=== PATIENT | male | born 1980 | race Asian ===

== ENCOUNTER 2020-10-30 11:30 | Outpatient (REF) | payer OTHER, SELFPAY | END 2020-10-30 11:31 | disposition home or self-care (01) | LOC: HO.LAB 11:30 | PROVIDERS: Visit Provider Internal Medicine | DX: Z20.822 Contact with and (suspected) exposure to COVID-19 (principal) | CPT/HCPCS: C9803; U0003; U0005 ==

== ENCOUNTER 2020-11-02 09:51 | Outpatient (REF) | payer OTHER, SELFPAY | END 2020-11-02 09:52 | disposition home or self-care (01) | LOC: HO.LAB 09:51 | PROVIDERS: Visit Provider Internal Medicine | DX: Z20.822 Contact with and (suspected) exposure to COVID-19 (principal) | CPT/HCPCS: C9803; U0003; U0005 ==

== ENCOUNTER 2023-06-08 13:43 | Emergency (ER) | payer OTHER, SELFPAY ==
--- NOTE | ~2023-06-08 | XR_ITS ---
EXAMINATION: XR CHEST CLINICAL INFORMATION: Chest pain. COMPARISON: None available. TECHNIQUE: Frontal view of the chest was obtained. FINDINGS: No significant abnormality is noted involving the heart, lungs, mediastinum, bony thorax or soft tissues. XR/XR chest 1V IMPRESSION: Unremarkable chest examination.
--- NOTE | 2023-06-08 13:45 | ECG_ITS ---
Test Reason : CP Blood Pressure : / mmHG Vent. Rate : 073 BPM Atrial Rate : 073 BPM P-R Int : 150 ms QRS Dur : 086 ms QT Int : 374 ms P-R-T Axes : 055 -08 -41 degrees QTc Int : 412 ms Normal sinus rhythm Nonspecific ST and T wave abnormality Abnormal ECG No previous ECGs available Referred By: Shanna Vides Electronically Signed By:ENRIQUE MARIANO
--- NOTE | 2023-06-08 13:55 | ED_ITS ---
HPI - General Adult General Chief complaint: Chest Pain Stated complaint: chest pain Time Seen by Provider: 06/08/23 17:11 Source: patient and family () Mode of arrival: ambulatory Limitations: no limitations History of Present Illness HPI narrative: 43 year old male with no significant pmhx presents to the ED today for evaluation of chest pain beginning acutely last night. States he got out of bed to get his a glass of water when he suddenly felt pain to the left side of his chest, radiating around the chest to the back. Pain has been constant and is exacerbated with deep breathing. Reports pain intensity 10/10 at onset, now rated 4/10. Took tylenol last night without relief. Denies known cardiac disease. He does not take medications on a daily basis. Denies injury or trauma. Denies fever, chills, cough, wheezing, shortness of breath, hemoptysis, nausea or vomiting, abdominal pain, flank pain, dysuria, hematuria. Denies recent travel or long car rides. Denies history of tobacco use. Related Data Previous Rx's Medication Instructions Recorded amlodipine 2.5 mg tablet 2.5 mg PO DAILY #30 tabs 06/08/23 Allergies Allergy/AdvReac Type Severity Reaction Status Date / Time No Known Allergies Allergy Verified 06/08/23 13:56 [No Known Allergies*] Review of Systems 2 Review of Systems: Constitutional: No fever, chills, fatigue, night sweats, weight changes ENT/Mouth: No ear pain, hearing loss, nasal congestion, sinus pain, rhinorrhea, sore throat Eyes: No eye pain, swelling, redness, vision changes, discharge Cardio: +chest pain, No palpitations, LAM, orthopnea, peripheral edema Pulm: No SOB, cough, sputum, wheezing, dyspnea, hemoptysis GI: No nausea, vomiting, hematemesis, abdominal pain, diarrhea, constipation, hematochezia, melena : No irregular bleeding, dysuria, frequency, urgency, hesitancy, hematuria, flank pain, urinary flow changes, urinary incontinence or retention MSK: No back pain, neck pain, joint pain, myalgias Skin: No lesions, rashes Neuro: No weakness, numbness, paresthesias, LOC, dizziness, headache All other systems reviewed and are negative. [facility] Past Medical History Attestation statement: The following information was validated with the patient. Source: old records reviewed and nursing notes reviewed Social History Social History Advance Directives: No Advance Directives Information Provided: No Physical Exam ED Vital Signs: Vital Signs - 24 hr 06/08/23 13:56 06/08/23 16:58 06/08/23 17:05 Temperature 98.2 F Pulse Rate 77 64 Respiratory Rate 18 16 Blood Pressure 164/100 H 177/103 H 168/98 H Pulse Oximetry 98 97 Oxygen Delivery Method Room Air Room Air 06/08/23 17:59 Temperature Pulse Rate 64 Respiratory Rate 18 Blood Pressure 166/99 H Pulse Oximetry 98 Oxygen Delivery Method Room Air BMI result Body Mass Index 34.9 Hypertensive to 168/98. Afebrile. Const Other: + nontoxic appearing, somewhat anxious General: cooperative, healthy appearing, comfortable, no acute distress, alert and awake Nutritional Appearance: overweight Orientation/consciousness: patient oriented x3 Limitations: no limitations Eyes General: appearance normal, both eyes and all related structures Conjunctivae: conjunctivae normal Sclerae: sclerae normal Pupils: Equal, round and reactive pupils present Neck Neck: Yes normal visual inspection, Yes full ROM, Yes no lymphadenopathy and Yes no JVD Chest Chest palpation & inspection: normal inspection of the chest, normal palpation of entire chest wall, no crepitus and no tenderness Resp Effort & Inspection: normal respiratory effort, able to speak in complete sentences, no respiratory distress, no tripod positioning and no use of accessory muscles Auscultation: clear to auscultation bilaterally, no wheezes and breath sounds present Cardio Jugular venous distension: no JVD Rate: regular rate Rhythm: regular rhythm Peripheral pulses: Peripheral pulses 2+ throughout GI Inspection: Yes normal to inspection Palpation (GI): Soft to palpation, nontender, no pulsatile masses and no aortic enlargement General: Yes no CVA tenderness Back/Spine/Pelvis Other: No midline spinous tenderness. No paraspinal muscle tenderness. No step off deformity. Back: no CVA tenderness Skin General skin exam: no rashes or lesions noted Neuro Other: Strength 5/5 intact throughout.? No saddle anesthesia.? Sensation intact to light touch.? Neurovascular intact distally.? General: patient oriented x3, gait normal and moves all extremities Cranial nerves: Yes Equal, round and reactive pupils present Extrem General: Yes normal to inspection Course Course Course Narrative: This is an RME: Additional HPI, ROS, PE not included below will be deferred to primary provider. 43-year-old male presents with left-sided chest pain worse with deep breathing, better with laying flat. Reports sharp pain, again aggravated by breathing, difficult to take a deep breath and per patient. This is been ongoing for 2 days. Unremarkable exam Plan labs, imaging Reevaluation(s) Reevaluation #1: 1731-- he with the without leukocytosis or anemia. D-dimer negative > patient has no risk factors. Perc score 0. CTA chest not indicated. Chemistry without acute electrolyte abnormality requiring intervention. Troponin undetectable x2. Patient requesting COVID test. EKG showing normal sinus rhythm with a rate of 73 beats per minute, QT 374, no acute ischemic changes or ST elevations. Chest x-ray unremarkable. > patient is noted to be hypertensive to 168/98. Denies known diagnosis of hypertension. Does not take antihypertensives at home. Will give 5 mg of amlodipine in ED and re-evaluate blood pressure. 1820-- On repeat vitals, patient's blood pressure is still elevated. We do not have any priors to compare to and this may be where the patient lives at baseline. Discussed this with my attending physician, Dr. Ndiaye, who also evaluated patient. Presentation consistent with pleuritis vs elevated blood pressure. Will send amlodipine to patient's pharmacy to take daily. Will also provide patient with a referral to a primary care doctor to establish care. Discussed the importance of following up with the primary care doctor. He verbalizes understanding and states that he will make an appointment tomorrow. Patient has remained stable throughout ED visit today. Discussed worrisome signs symptoms and when to return to the ED. All questions answered at this time. Patient is agreeable with disposition and stable for discharge. Medications Administered Discontinued Medications Generic Name Dose Route Start Last Admin Trade Name Freq PRN Reason Stop Dose Admin Amlodipine Besylate 5 mg 06/08/23 17:15 06/08/23 17:23 Amlodipine Besylate 5 Mg Tablet PO 06/08/23 17:16 5 mg ONCE ONE Administration Protocol Ketorolac Tromethamine 60 mg 06/08/23 17:26 06/08/23 18:02 Ketorolac Tromethamine 60 Mg/2 Ml Vial IM 06/08/23 17:27 60 mg ONCE ONE Administration Medical Decision Making Medical Decision Making [facility] Narrative: 43 year old male with no significant pmhx presents to the ED today for evaluation of chest pain beginning acutely last night. Patient is nontoxic appearing in no acute distress however anxious. Vital signs notable for hypertension to 168/98. Otherwise WNL. Afebrile. RRR. No reproducible chest wall tenderness. No palpable deformity. Lungs CTA bilaterally, no wheezing. No calf tenderness bilaterally. PERC score 0. Concern for hypertension, arrhythmia, ACS, viral syndrome, pneumonia, pleuritis. Lower suspicion for pneumothorax, pleural effusion, pulmonary embolism, DVT. Unlikely dissection, AAA. Unlikely renal colic, nephrolithiasis, UTI, cauda equina, cord compression, Guillain-Jasper, epidural abscess. Labs, EKG, chest x-ray ordered in triage. Will obtain viral serology and re-evaluate. Differential Diagnosis Differential Diagnoses: The differential diagnosis associated with the presentation includes as above. Admission/Observation Not indicated Lab Data [facility] Lab Attestation statement: I reviewed the patient's lab results. As above 06/08/23 13:54 06/08/23 13:54 Labs: Lab Results 06/08/23 06/08/23 06/08/23 Range/Units 13:54 14:37 16:09 WBC 6.1 (4.8-10.8) X10*3/uL RBC 5.76 (4.60-5.80) X10*6/uL Hgb 16.4 (14.0-18.0) g/dl Hct 49.1 (42.0-52.0) % MCV 85.2 (80.0-98.0) fL MCH 28.5 (27.0-33.0) pg MCHC 33.4 (31.0-36.0) g/dl RDW 14.0 (11.0-16.0) % Plt Count 190 (160-400) X10*3/uL MPV 10.9 (9.4-12.4) fL Immature Gran % (Auto) 0.2 (0.0-0.4) % Neut % (Auto) 47.8 (45-73) % Lymph % (Auto) 41.0 H (20-40) % [place] % (Auto) 7.4 (2-11) % Eos % (Auto) 2.6 (0-4) % Baso % (Auto) 1.0 (0-2) % Lymph # (Auto) 2.5 (1.2-4.9) X10*3/uL [place] # (Auto) 0.5 (0.1-1.2) X10*3/uL Eos # (Auto) 0.2 (0.0-0.4) X10*3/uL Baso # (Auto) 0.1 (0.0-0.2) X10*3/uL Abs Immat Gran (auto) 0.01 (0.00-0.03) X10*3/uL Absolute Neuts (auto) 2.9 (2.0-8.3) x10*3/uL Absolute Nucleated RBC 0.000 (0.0-0.012) X10*3/uL Nucleated RBC % (auto) 0.0 (0.0-0.2) /100WBC PT 14.1 H (11.1-13.3) SEC INR 1.2 H (0.9-1.1) D-Dimer High Sensitivty < 150 NG/ML Sodium 144 (135-145) mmol/L Potassium 3.7 (3.3-5.1) mmol/L Chloride 109 H (96-108) mmol/L Carbon Dioxide 21 L (22-29) mmol/L Anion Gap 18 (12-20) BUN 23 H (9-16) mg/dL Creatinine 0.91 (0.5-1.4) mg/dL Estim Creat Clear Calc 140.8 Estimated GFR > 60 Random Glucose 89 (60-115) mg/dL Calcium 9.6 (8.4-10.2) mg/dL Magnesium 2.3 (1.6-2.6) mg/dL Total Bilirubin 1.0 (0.0-1.0) mg/dL AST 25 (5-37) U/L ALT 43 H (0-40) U/L Alkaline Phosphatase 109 (39-117) U/L Troponin I High Sens < 2.7 < 2.7 (<3.5-35.0) ng/L Total Protein 7.8 (6.5-8.0) g/dL Albumin 4.2 (3.5-5.0) g/dL COVID-19 (PABLO) (Negative) COVID-19 Clin Com 06/08/23 Range/Units 17:25 WBC (4.8-10.8) X10*3/uL RBC (4.60-5.80) X10*6/uL Hgb (14.0-18.0) g/dl Hct (42.0-52.0) % MCV (80.0-98.0) fL MCH (27.0-33.0) pg MCHC (31.0-36.0) g/dl RDW (11.0-16.0) % Plt Count (160-400) X10*3/uL MPV (9.4-12.4) fL Immature Gran % (Auto) (0.0-0.4) % Neut % (Auto) (45-73) % Lymph % (Auto) (20-40) % [place] % (Auto) (2-11) % Eos % (Auto) (0-4) % Baso % (Auto) (0-2) % Lymph # (Auto) (1.2-4.9) X10*3/uL [place] # (Auto) (0.1-1.2) X10*3/uL Eos # (Auto) (0.0-0.4) X10*3/uL Baso # (Auto) (0.0-0.2) X10*3/uL Abs Immat Gran (auto) (0.00-0.03) X10*3/uL Absolute Neuts (auto) (2.0-8.3) x10*3/uL Absolute Nucleated RBC (0.0-0.012) X10*3/uL Nucleated RBC % (auto) (0.0-0.2) /100WBC PT (11.1-13.3) SEC INR (0.9-1.1) D-Dimer High Sensitivty NG/ML Sodium (135-145) mmol/L Potassium (3.3-5.1) mmol/L Chloride (96-108) mmol/L Carbon Dioxide (22-29) mmol/L Anion Gap (12-20) BUN (9-16) mg/dL Creatinine (0.5-1.4) mg/dL Estim Creat Clear Calc Estimated GFR Random Glucose (60-115) mg/dL Calcium (8.4-10.2) mg/dL Magnesium (1.6-2.6) mg/dL Total Bilirubin (0.0-1.0) mg/dL AST (5-37) U/L ALT (0-40) U/L Alkaline Phosphatase (39-117) U/L Troponin I High Sens (<3.5-35.0) ng/L Total Protein (6.5-8.0) g/dL Albumin (3.5-5.0) g/dL COVID-19 (PABLO) Negative (Negative) COVID-19 Clin Com See Note Independent Interpretation I performed an independent interpretation of an: EKG and Plain X-Ray Interpretation: EKG showing normal sinus rhythm with a rate of 73 beats per minute, QT 374, QTC 412, nonspecific ST and T-wave abnormality, no acute ischemic changes or ST elevations. Chest x-ray without infiltrate or consolidation, agree with radiologist's interpretation. Radiology Impression Discussion of test interpretation with radiology: I have reviewed the radiologist's reading. Radiologist Impression: XR chest 1V IMPRESSION: Unremarkable chest examination. Independent Historian Clinical information obtained from an independent historian. History obtained from or confirmed by: Spouse () External Record Review External record reviewed: Inpatient record Prescription Management I considered prescription management with: Pain Medication and Other (Antihypertensive) Social Determinants Patient?s care significantly limited by Social Determinants of Health including: Other Social Determinant of Health Critical Care Time Critical Care Time Critical Care Time: No Discharge Plan Discharge Clinical Impression: Blood pressure elevated without history of HTN Patient Disposition: Home, Self-Care Instructions: Heart Healthy Diet (ED), How to Take a Blood Pressure (ED), Low- Sodium Diet (ED), Hypertension (ED) Additional Instructions: Your labs today were normal. Your EKG today was normal. Your chest x-ray today was normal. You were noted to have high blood pressure in the ED. You were given a dose of medication for this with improvement in blood pressure. Amlodipine is an antihypertensive that has been sent to your pharmacy. Take this daily for high blood pressure. You have also been provided with a referral to a primary care doctor. CALL THEM TO MAKE AN APPOINTMENT. THEY WILL NOT CALL YOU. If symptoms persist or worsen please return to the emergency department. In the case of an emergency call 911. Prescriptions: New amlodipine 2.5 mg tablet 2.5 mg PO DAILY Qty: 30 0RF Referrals: [facility] [Provider Group] [facility] [place] [facility] Group] Interventions: ED Discharge Assessment Last Done: 06/08/23 18:35 Discharge Date/Time: 06/08/23 18:36
[2023-06-08 13:56] VITALS: BP 164/100; PULSE 77; RESP 18; TEMP 36.8; O2SAT 98; BMI 34.9
[2023-06-08 13:59] LABS: MANUAL DIFF FLAG NO
[2023-06-08 14:01] LABS: Basophils Absolute Auto 0.1 X10*3/uL (0.0-0.2); Eosinophils Absolute Auto 0.2 X10*3/uL (0.0-0.4); Eosinophils Percent Auto 2.6 % (0-4); Hematocrit 49.1 % (42.0-52.0); Hemoglobin 16.4 g/dl (14.0-18.0); Imm Gran Abs Auto 0.01 X10*3/uL (0.00-0.03); Imm Gran Pct Auto 0.2 % (0.0-0.4); Lymphocytes Absolute Auto 2.5 X10*3/uL (1.2-4.9); Mean Corpuscular HGB Conc 33.4 g/dl (31.0-36.0); Mean Corpuscular Hemoglobin 28.5 pg (27.0-33.0); Mean Corpuscular Volume 85.2 fL (80.0-98.0); Mean Platelet Volume 10.9 fL (9.4-12.4); Monocytes Absolute Auto 0.5 X10*3/uL (0.1-1.2); Monocytes Percent Auto 7.4 % (2-11); Neutrophils Absolute Auto 2.9 x10*3/uL (2.0-8.3); Neutrophils Percent Auto 47.8 % (45-73); Platelet Count 190 X10*3/uL (160-400); Red Blood Count 5.76 X10*6/uL (4.60-5.80); White Blood Count 6.1 X10*3/uL (4.8-10.8)
[2023-06-08 14:27] LABS: Alanine Aminotransferase 43 U/L (0-40); Albumin Level 4.2 g/dL (3.5-5.0); Alkaline Phosphatase 109 U/L (39-117); Anion Gap 18 (12-20); Aspartate Amino Transferase 25 U/L (5-37); Blood Urea Nitrogen 23 mg/dL (9-16); Calcium 9.6 mg/dL (8.4-10.2); Carbon Dioxide 21 mmol/L (22-29); Chloride 109 mmol/L (96-108); Creatinine Clr Calc Pharmacy 140.8; Estimated Glomerular Filt Rate > 60; Glucose Random 89 mg/dL (60-115); Magnesium 2.3 mg/dL (1.6-2.6); Potassium 3.7 mmol/L (3.3-5.1); Sodium 144 mmol/L (135-145); Total Protein 7.8 g/dL (6.5-8.0)
[2023-06-08 14:35] LABS: Troponin-I High Sensitivity < 2.7 ng/L (<3.5-35.0)
[2023-06-08 14:51] LABS: INTERNATIONAL NORM RATIO 1.2 (0.9-1.1); Prothrombin Time 14.1 SEC (11.1-13.3)
[2023-06-08 14:53] LABS: D Dimer High Sensitivity < 150 NG/ML
[2023-06-08 16:39] LABS: Troponin-I High Sensitivity < 2.7 ng/L (<3.5-35.0)
[2023-06-08 16:58] VITALS: BP 177/103; PULSE 64; RESP 16; O2SAT 97
[2023-06-08 17:05] VITALS: BP 168/98
[2023-06-08] MEDS: amLODIPine Besylate 5 MG TABLET PO (17:23)
[2023-06-08 17:50] LABS: COVID-19 Test Negative (Negative); IDNOW Serial# BCCEAD1C
[2023-06-08 17:59] VITALS: BP 166/99; PULSE 64; RESP 18; O2SAT 98
[2023-06-08] MEDS: Ketorolac Tromethamine 60 MG/2 ML VIAL IM (18:02)
== END 2023-06-08 18:36 | disposition home or self-care (01) ==
PROVIDERS: Physician Assistant; Physician Assistant Medical; Emergency Provider Emergency Medicine
DX: I10 Essential (primary) hypertension (principal); R07.9 Chest pain, unspecified; Z11.52 Encounter for screening for COVID-19
CPT/HCPCS: 36415; 71045; 80053; 83735; 84484; 85025; 85379; 85610; 87635; 93005; 96372; 99284; J1885

== ENCOUNTER → 2023-06-08 13:45 | Outpatient (BNV) | payer OTHER, SELFPAY | PROVIDERS: Emergency Provider Emergency Medicine; Visit Provider Internal Medicine | DX: R07.9 Chest pain, unspecified (principal) | CPT/HCPCS: 93010 ==

== ENCOUNTER 2023-06-26 17:10 | Outpatient (AMB) | payer OTHER, SELFPAY ==
--- NOTE | 2023-06-26 17:11 | A.OFFPC_ITS ---
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 Acetylene Torch Burner Required: No Accompanied by: Self / Same As Patient Allergies No Known Allergies [No Known Allergies*] Allergy (Verified 06/26/23 17:44) Medication List - Last Reconciled 06/26/23 by David Milligan CNP amlodipine 2.5 mg PO DAILY Tobacco use date assessed: 06/26/23 Dental Screening Dental Screen Date: 06/26/23 Did you have a dental visit in the last 12 months?: Yes Did you have a dental problem in the last 6 months where you did not have access to dental care?: No Was dental information given to patient?: Patient has dentist ([facility] in [place]) HPI HPI Comments History of Present Illness Details New patient Prior PCP: [facility],?Dr Mcfarland Last office visit/CPE: About 4 years Acute issue(s): Hypertension -He is on Amlodipine 2.5mg daily. He adm its to taking his medication as prescribed PMHx: HTN SurgHx: None FHx: None SocHx: Nonsmoker. No alcohol. No drugs He was evaluated and treated at [facility] [place] [facility] on 05/19/2023 for left-sided chest pain. Labs, EKG, and chest x-ray were unremarkable. Blood pressure was elevated between 164-177/98-103. He denied history of hypertension or being on antihypertensives. He was discharged home on amlodipine 2.5 mg daily and referred to a PCP. He reports intermittent stiffness around his left scapula for the past 2 weeks. He notes that he has been massaging the area and apply warm compresses with improvement He notes that he has not been exercising or making healthy healthy dietary choices and continues to gain weight [facility] Medical History (Updated 06/26/23 @ 17:54 by Chey Alegria CMA) No pertinent past medical history Surgical History (Updated 06/26/23 @ 17:54 by Chey Alegria CMA) No pertinent past surgical history Social History (Updated 06/26/23 @ 17:23 by Chey Alegria CMA) Household Members: Spouse and Children Housing: House Are you a primary human services care specialist to a significant other at home: No Do you presently have visiting nurse or other home services: No 75 years or older and lives alone: No Alcohol intake: never Patient Tobacco Use Status: Never used Tobacco e-Cigarette/Vaping Use: Never Used service: No Current occupational status: employed Current occupation: [employer] Current occupational exposures/hazards: Yes Sexual orientation: Unable to collect Gender identity: Unable to collect Cognitive needs: No Hearing needs: No Vision needs: No Questionnaire PHQ-9 Over the last 2 weeks, how often have you been bothered by any of the following problems? 1. Little interest or pleasure in doing things: not at all 2. Feeling down, depressed, or hopeless: not at all 3. Trouble falling or staying asleep, or sleeping too much: not at all 4. Feeling tired or having little energy: not at all 5. Poor appetite or overeating: not at all 6. Feeling bad about yourself - or that you are a failure or have let yourself or your family down: not at all 7. Trouble concentrating on things, such as reading the newspaper or watching television: not at all 8. Moving or speaking so slowly that other people could have noticed. Or the opposite - being so fidgety or restless that you have been moving around a lot more than usual: not at all 9. Thoughts that you would be better off or of hurting yourself in some way: not at all Total score: 0 Depression Screening Interpretation: Negative Depression Screening Done: Yes 70924 - PHQ-9 Billing: Yes Source: Developed by Drs. Cameron Clark, Carol Mendoza, Kvng Damon and colleagues, with an educational halley from [employer]. Thrive Questionnaire Date Thrive assessed: 06/26/23 I am a: Patient What is your living situation today?: I have a steady place to live Within the past 12 months, did the food you bought not last and you didn't have the money to get more?: Never true Within the past 12 months, did you worry whether your food would run out before you got money to buy more?: Never true Do you have trouble paying for medicines?: No Do you have trouble getting transportation to medical appointments?: No Do you have trouble paying your heating and electricity bill?: No Do you have trouble taking care of your child, family member or friend?: No Do you have trouble with day-to-day activities such as bathing, preparing meals, shopping, managing finances, etc.?: No Are you currently unemployed and looking for a job?: No Are you interested in more education?: No Please select the resources that you would like help with: None AUDIT C Alcohol Use Questionnaire (AUDIT-C) 1. How often do you have a drink containing alcohol?: Never 3. How often do you have six or more drinks on one occasion?: Never Total Score: 0 DARCIE-7 AMB Questionnaire DARCIE-7 Date DARCIE - 7 assessed: 06/26/23 Feeling nervous, anxious, or on edge: 0 = Not at all Not being able to stop or control worryin = Not at all Worrying too much about different things: 0 = Not at all Trouble relaxin = Not at all Being so restless that it is hard to sit still: 0 = Not at all Becoming easily annoyed or irritable: 0 = Not at all Feeling afraid as if something awful might happen: 0 = Not at all Total DARCIE-7 score (0-4 normal; 5-9 mild; 10-14 moderate; 15-21 severe): 0 Source: Developed by Drs. Cameron Clark, Carol Mendoza, Kvng Damon and colleagues, with an educational halley from [employer]. DARCIE-7 Assessment Billing DARCIE-7 Assessment Tool: DARCIE-7 Assessment 48915 Review of Systems Const Details: Const Denies chills, Denies fatigue, Denies fever(s), Denies headache(s) and Denies weakness ENT Denies dizziness and Denies headache(s) Card Denies chest pain, Denies lightheadedness, Denies dyspnea and Denies other (Palpitations) Resp Denies cough, Denies dyspnea, Denies wheezing and Denies other ( shortness of breath) GI Denies abdominal pain, Denies melena, Denies hematochezia, Denies change in bowel habits, Denies dyspepsia and Denies nausea Denies hematuria and Denies dysuria Musc Denies abnormal gait, Denies myalgias, Denies arthralgias, Denies numbness and Denies tingling Skin/Breast Denies rash, Denies unusual bruising and Denies wounds Neuro Denies abnormal gait, Denies dizziness, Denies headache(s), Denies memory loss, Denies numbness, Denies Sensory deficit (Neuro), Denies tingling and Denies weakness Psych Denies anxiety, Denies depression, Denies memory loss Endo Denies cold intolerance, Denies fatigue, Denies heat intolerance, Denies polydipsia and Denies polyuria Aller/Immun Denies wheezing Physical exam (Primary Care) Vital Signs: Last Vital Signs Pulse 94 06/26/23 17:12 Resp 13 06/26/23 17:12 BP 138/90 H 06/26/23 17:35 Pulse Ox 97 06/26/23 17:12 Oxygen Delivery Method Room Air 06/26/23 17:12 BMI result Body Mass Index 35.1 Tobacco/Smoking Status: Tobacco use Status Tobacco use date assessed 06/26/23 06/26/23 17:20 Patient Tobacco Use Status Never used Tobacco 06/26/23 17:23 e-Cigarette/Vaping Use Never Used 06/26/23 17:23 PHQ-9: PHQ-9 Score PHQ-9: Total score 0 06/26/23 17:25 Depression Screening Interpretation: Negative Thrive Assessment: Date of Thrive Assessment Date Thrive assessed 06/26/23 06/26/23 17:25 Const Other: General: no acute distress and well developed Nutritional Appearance: well nourished Orientation/consciousness: patient oriented x3 HENMT Head: Yes normocephalic and Yes atraumatic Eyes General: appearance normal, both eyes and all related structures Pupils: Equal, round and reactive pupils present EOM: EOMs intact bilaterally Resp Effort & Inspection: normal respiratory effort Auscultation: clear to auscultation bilaterally Cardio Rate: regular rate Rhythm: regular rhythm Heart sounds: S1 normal heart sound present, S2 normal heart sound present, no gallops, no murmurs and no rubs GI Palpation (GI): No Abdominal aortic bruit present, Soft to palpation, nontender, No hepatosplenomegaly present and No Rebound tenderness present Auscultation: normal bowel sounds General: Yes no CVA tenderness Back/Spine/Pelvis Back: no CVA tenderness Cervical Spine: cervical ROM normal and No Cervical spine tenderness Thoracic/Lumbar Spine: thoraco-lumbar ROM normal, No pain with thoraco-lumbar ROM, No thoracic spinal tenderness and No lumbar spinal tenderness Extrem General: Yes normal to inspection, No edema and No calf tenderness Skin General: warm and dry. Normal skin color. Normal skin turgor Lesions: skin tags diffused round his neck Rashes: no rashes Trauma: no lacerations or abrasions Wounds: no wounds Nails: normal Neuro General: patient oriented x3, gait normal and no focal neuro deficit Cranial nerves: Yes Equal, round and reactive pupils present Cognition (Neuro): normal cognition Gait exam (Neuro): Normal gait present Sensory Exam: No Sensory deficit (Neuro) Psych Appearance: grossly normal Affect: normal affect Attitude: cooperative Thought process: Normal thought process present Assessment and Plan Assessment & Plan (1) Hypertension: Code(s): I10 - Essential (primary) hypertension Plan: Resting blood pressure is 138/90, above goal of less than 140/90 Will increase amlodipine to 5 mg daily. Take as prescribed Low-sodium diet and routine exercise encouraged Follow-up in 2 weeks or return sooner with symptoms or concerns Verbalized understanding and agreed with treatment plan (2) Obesity (BMI 30-39.9): Code(s): E66.9 - Obesity, unspecified Plan: He currently weighs 259 lb, BMI is 35.1 He has not been making healthy lifestyle choices Healthy diet and routine exercise encouraged Referred to weight management Follow-up with symptoms or concerns Verbalized understanding and agreed with treatment plan (3) Back stiffness: Code(s): M25.69 - Stiffness of other specified joint, not elsewhere classified Plan: intermittent stiffness around his left scapula for the past 2 weeks Left scapular region nontender to palpation Nontender cervical, thoracic, or lumbar spine No overt trauma or injury May take ibuprofen or Tylenol for pain or discomfort Continue with massage therapy and warm compresses Follow-up with new or worsening symptoms Verbalized understanding and agreed with treatment plan Orders: Referrals Medical Weight Management Referral E66.9 - Obesity, unspecified Medications: New amlodipine 5 mg PO DAILY 30 days 30 tabs 3RF Discontinued amlodipine Discontinued Reason: Doctor's Order 2.5 mg PO DAILY 30 tabs 0RF Coding Level of Care Code New Pt Level 4 (65549) Diagnoses Hypertension I10 Obesity (BMI 30-39.9) E66.9 Back stiffness M25.69 Additional Codes DARCIE-7 Assessment Billing - DARCIE-7 Assessment Tool: DARCIE-7 Assessment 13219 ([id number])
[2023-06-26 17:12] VITALS: BP 150/90; PULSE 94; RESP 13; O2SAT 97; BMI 35.1
[2023-06-26 17:35] VITALS: BP 138/90
== END 2023-06-26 17:47 | disposition home or self-care (01) ==
PROVIDERS: Visit Provider Nurse Practitioner Family
DX: I10 Essential (primary) hypertension (principal); E66.9 Obesity, unspecified; M25.69 Stiffness of other specified joint, not elsewhere classified; Z68.35 Body mass index [BMI] 35.0-35.9, adult
CPT/HCPCS: 99204